=== PATIENT | female | born 1960 | race Hispanic/Latino ===

== ENCOUNTER 2018-06-09 11:58 | Emergency (ER) | payer OTHER ==
[2018-06-09 12:01] VITALS: BMI 32.2
[2018-06-09 12:15] VITALS: RESP 18; TEMP 98.5
--- NOTE | 2018-06-09 12:25 | ED PDOC ---
Arrival/HPI - General Chief Complaint: Upper Extremity Problem/Injury Time Seen by Provider: 06/09/18 12:00 Historian: Patient - History of Present Illness Narrative History of Present Illness (Text): 06/09/18 12:22 A 58 year old female, whose past medical history includes hypertension and hyperlipidemia, presents to the emergency department with a complaint of left sided shoulder/ forearm pain s/p work injury. 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 Patient notes that she lifted the stretcher out of the space where it was stuck but felt the pain to her left shoulder and arm. She notes that the shoulder pain radiates upward towards her neck and her forearm feels "bruised". The patient denies fevers, chills, headache, dizziness, sore throat, cough, chest pain, shortness of breath, dyspnea on exertion, abdominal pain, nausea, vomiting, diarrhea, neck/back pain , urinary/bowel changes or any other complaint. PMD: Dr. Gallegos Time/Duration: Prior to Arrival Symptom Onset: Sudden Symptom Course: Unchanged Activities at Onset: Rest, Light Context: Work ([employer]) Past Medical History - Provider Review Nursing Documentation Reviewed: Yes - Infectious Disease Hx of Infectious Diseases: None - Tetanus Immunization Tetanus Immunization: Unknown - Reproductive Menopause: Yes - Cardiac Hx Cardiac Disorders: Yes Hx Hypertension: Yes - Pulmonary Hx Respiratory Disorders: No - Neurological Hx Neurological Disorder: No - HEENT Hx HEENT Disorder: No - Renal Hx Renal Disorder: No - Endocrine/Metabolic Hx Endocrine Disorders: No - Hematological/Oncological Hx Blood Disorders: No - Integumentary Hx Dermatological Disorder: No - Musculoskeletal/Rheumatological Hx Musculoskeletal Disorders: Yes Hx Fractures: Yes (FX. RIGHT ARM APROX 1970) Other/Comment: PAIN RIGHT KNEE - Gastrointestinal Hx Gastrointestinal Disorders: No - Genitourinary/Gynecological Hx Genitourinary Disorders: No - Psychiatric Hx Psychophysiologic Disorder: No Hx Substance Use: No - Surgical History Hx Appendectomy: Yes Hx Section: Yes (X3) Hx Orthopedic Surgery: Yes (right knee) Other/Comment: LAP BAND SURGERY 2009 - Anesthesia Hx Anesthesia: Yes Hx Anesthesia Reactions: Yes (N/V; PANIC ATTACK) Hx Malignant Hyperthermia: No - Suicidal Assessment Feels Threatened In Home Enviroment: No Family/Social History - Physician Review Nursing Documentation Reviewed: Yes Family/Social History: No Known Family HX Smoking Status: Former Smoker Hx Alcohol Use: Yes Hx Substance Use: No Hx Substance Use Treatment: No Allergies/Home Meds Allergies/Adverse Reactions: Allergies amlodipine Allergy (Verified 06/09/18 12:04) SWELLING lisinopril Allergy (Verified 06/09/18 12:04) RASH Home Medications: Home Meds Medication Instructions Recorded Confirmed Naproxen Sodium [Aleve] 1 tab PO PRN PRN 09/17/15 06/09/18 Hydrochlorothiazide [HCTZ] 25 mg PO DAILY 09/20/15 06/09/18 Aspirin [[place] Aspirin] 81 mg PO DAILY 06/09/18 06/09/18 Review of Systems - Physician Review All systems were reviewed & negative as marked: Yes - Review of Systems Constitutional: absent: Fevers Respiratory: absent: SOB, Cough Cardiovascular: absent: Chest Pain, PICKARD Gastrointestinal: absent: Abdominal Pain, Stool Changes, Diarrhea, Nausea, Vomiting Genitourinary Female: absent: Urine Output Changes Musculoskeletal: Myalgias (Left shoulder and forearm.). absent: Back Pain, Neck Pain Neurological: absent: Headache, Dizziness Physical Exam Vital Signs Reviewed: Yes Vital Signs Temp Pulse Resp BP Pulse Ox 06/09/18 12:40 90 06/09/18 12:37 90 18 169/82 H 97 06/09/18 11:58 98.5 F 100 H 18 175/96 H 96 Temperature: Afebrile Blood Pressure: Hypertensive Pulse: Tachycardic Respiratory Rate: Normal Appearance: Positive for: Well-Appearing, Non-Toxic, Comfortable Pain Distress: None Mental Status: Positive for: Alert and Oriented X 3 - Systems Exam Head: Present: Atraumatic, Normocephalic Pupils: Present: PERRL Extroacular Muscles: Present: EOMI Conjunctiva: Present: Normal Mouth: Present: Moist Mucous Membranes Neck: Present: Normal Range of Motion Respiratory/Chest: Present: Clear to Auscultation, Good Air Exchange. No: Respiratory Distress, Accessory Muscle Use Cardiovascular: Present: Regular Rate and Rhythm, Normal S1, S2. No: Murmurs Abdomen: No: Tenderness, Distention, Peritoneal Signs Back: Present: Normal Inspection Upper Extremity: Present: Normal ROM (Mild pain with movement of left shoulder.) , Tenderness (Left ulnar nerve tenderness), Neurovascularly Intact Lower Extremity: Present: Normal Inspection. No: Edema Neurological: Present: GCS=15, CN II-XII Intact, Speech Normal, Motor Func Grossly Intact, Normal Sensory Function Skin: Present: Warm, Dry, Normal Color. No: Rashes Psychiatric: Present: Alert, Oriented x 3, Normal Insight, Normal Concentration Medical Decision Making ED Course and Treatment: 06/09/18 12:27 Impression: A 58 year old female presents to the emergency department with a complaint of left sided shoulder ad forearm pain s/p work injury. Differential Diagnosis included but are not limited to: muscle strain, no fracture. Plan: -- Motrin -- Reassess and disposition Progress Notes: 06/09/18 12:28: No indication for X-Rays. 06/09/18 12:29 Patient is in no acute distress. Patient given the opportunity to ask question, all questions were answered and there is agreement with the plan to discharge the patient home. Patient is stable for discharge. Patient was instructed to follow up with physician/clinic in 1-2 days or return if symptoms persist/ worsen or new concerning symptoms arise. - Medication Orders Current Medication Orders: Discontinued Medications Ibuprofen (Motrin Tab) 600 mg PO STAT STA Stop: 06/09/18 12:19 Last Admin: 06/09/18 12:33 Dose: 600 mg MAR Pain/Vitals Document 06/09/18 12:33 SF (Rec: 06/09/18 12:34 SF [id number]) Pain Reassessment Is This A Pain ReAssessment? Yes Sleep Is patient sleeping during reassessment? No Presence of Pain Presence of Pain Yes Pain Scale Used Pain Scale Used Numeric Location Left, Right or Bilateral Right Pain Location Body Site Shoulder - Scribe Statement The provider has reviewed the documentation as recorded by the Diann Kerr Provider Scribe Attestation: All medical record entries made by the Scribjuan were at my direction and personally dictated by me. I have reviewed the chart and agree that the record accurately reflects my personal performance of the history, physical exam, medical decision making, and the department course for this patient. I have also personally directed, reviewed, and agree with the discharge instructions and disposition. Disposition/Present on Arrival - Present on Arrival Any Indicators Present on Arrival: No History of DVT/PE: No History of Uncontrolled Diabetes: No Urinary Catheter: No History of Decub. Ulcer: No History Surgical Site Infection Following: None - Disposition Have Diagnosis and Disposition been Completed?: Yes Diagnosis: Muscle strain, upper arm Disposition: HOME/ ROUTINE Disposition Time: 12:30 Patient Plan: Discharge Condition: GOOD Discharge Instructions (ExitCare): Muscle Strain Additional Instructions: [facility] Employee Regarding your Work Related Injury, you are instructed to do all of the following by next day: 1. Notify [facility] Employee Health Department of the sustained injury and arrange for any follow-up appointments if needed during the next business day. If the office is closed or no answer is received, please leave a detailed voice message. Message should include your full name, department and manager residential, date of injury, date of ED visit if applicable. Employee Health can be reached at [phone]. 2. If there is time lost, notify [facility] Human Resources Department of the work related injury the next day at [phone]. SERVANDO CRAWFORD, thank you for letting us take care of you today. Your provider was Enrique Singh DO and you were treated for Shoulder and Arm Strain. The emergency medical care you received today was directed at your acute symptoms. If you were prescribed any medication, please fill it and take as directed. It may take several days for your symptoms to resolve. Return to the Emergency Department if your symptoms worsen, do not improve, or if you have any other problems. Please contact your doctor or call one of the physicians/clinics you have been referred to that are listed on the Patient Visit Information form that is included in your discharge packet. Bring any paperwork you were given at discharge with you along with any medications you are taking to your follow up visit. Our treatment cannot replace ongoing medical care by a primary care provider outside of the emergency department. Thank you for allowing the [facility] team to be part of your care today. If you had an X-Ray or CT scan: A Radiologist will review the ED reading if any change in treatment is needed we will contact you. If you had a blood, urine, or wound culture: It will take several days for the results, if any change in treatment is needed we will contact you. If you had an STI test: It will take 48 hours for the results. Please call after 1 week if you have not heard back. Prescriptions: Ibuprofen [Motrin] 600 mg PO Q6 PRN #30 tab PRN Reason: Pain, Moderate (4-7) Referrals: Wild Gallegos MD [Primary Care Provider] - Follow up with primary Forms: [facility] (Lithuanian), WORK NOTE
[2018-06-09 12:38] VITALS: BP 169/82; O2SAT 97
[2018-06-09 12:40] VITALS: PULSE 90
== END 2018-06-09 12:40 | disposition home or self-care (01) ==
LOC: ED 11:58
DX: S46.912A Strain of unspecified muscle, fascia and tendon at shoulder and upper arm level, left arm, initial encounter (principal); X50.9XXA Other and unspecified overexertion or strenuous movements or postures, initial encounter; Y92.239 Unspecified place in hospital as the place of occurrence of the external cause; Y99.0 Civilian activity done for income or pay

== ENCOUNTER 2018-10-10 11:50 | Day surgery (SDC) | payer OTHER ==
[2018-10-10] MEDS ORDERED: Sodium Chloride 0.9% 1,000 ML IV SCH (12:45)
[2018-10-10] MEDS ORDERED: Propofol 10 mg/ml Inj (20 ML) ONE ×3 (14:51→15:21)
[2018-10-10] MEDS ORDERED: Midazolam 2 MG/2 ML VIAL ONE (15:21)
[2018-10-10 17:06] VITALS: BP 132/70; PULSE 89; RESP 18; TEMP 98; O2SAT 97
== END 2018-10-10 17:46 | disposition home or self-care (01) ==
LOC: ENDO 11:50
PROVIDERS: ATTEND Internal Medicine Gastroenterology
DX: K22.11 Ulcer of esophagus with bleeding (principal); K29.50 Unspecified chronic gastritis without bleeding; K29.80 Duodenitis without bleeding; D12.5 Benign neoplasm of sigmoid colon; K57.30 Diverticulosis of large intestine without perforation or abscess without bleeding; K64.8 Other hemorrhoids; R63.4 Abnormal weight loss; R19.4 Change in bowel habit; L40.9 Psoriasis, unspecified; I10 Essential (primary) hypertension; Z80.0 Family history of malignant neoplasm of digestive organs; Z98.84 Bariatric surgery status
CPT/HCPCS: 43239; 45385; 88305; 88312; 88342; J2001; J2250; J2704; J7030; J7040

== ENCOUNTER 2019-01-13 07:37 | Day surgery (SDC) | payer OTHER ==
[2019-01-13] MEDS ORDERED: Propofol 10 mg/ml Inj (20 ML) ONE ×2 (09:09→09:32)
[2019-01-13] MEDS ORDERED: Sodium Chloride 0.9% 1,000 ML IV SCH (09:15)
[2019-01-13] MEDS ORDERED: Phenylephrine 10 mg/ml Inj ONE (09:25)
[2019-01-13 10:28] VITALS: BP 112/74; PULSE 81; RESP 19; TEMP 97.9; O2SAT 97
== END 2019-01-13 11:10 | disposition home or self-care (01) ==
LOC: ENDO 07:37
PROVIDERS: ATTEND Internal Medicine Gastroenterology
DX: K29.50 Unspecified chronic gastritis without bleeding (principal); I10 Essential (primary) hypertension; Z98.84 Bariatric surgery status
CPT/HCPCS: 43239; 88305; 88312; 88342; J2001; J2370; J2704; J7030; J7040